=== PATIENT | female | born 1975 | race Caucasian/White ===

== ENCOUNTER 2016-12-22 15:04 | Emergency (ER) | payer OTHER ==
[~2016-12-22] VITALS: Ht 160 cm; Wt 110.0 kg
[2016-12-22 15:06] VITALS: Ht 160 cm; Wt 110.0 kg
[2016-12-22] MEDS ORDERED: ONDANSETRON 4 MG INJ IV STA (16:03)
[2016-12-22] MEDS ORDERED: morphine 4 MG/ML VIAL IV STA (16:03)
[2016-12-22] MEDS ORDERED: SOD CHLORIDE 0.9% 1,000 ML IV STA (16:03)
--- NOTE | 2016-12-22 16:18 | ERD ---
ER Documentation Chief Complaint Date/Time DATE: 12/22/16 TIME: 16:14 Chief Complaint RIGHT SIDED AP, SEEN AT [facility] LAST TUESDAY HPI This is a 41-year-old female with history of cholecystectomy in the past presenting to the emergency department complaining of right sided abdominal pain since last Tuesday. Patient states that it started off with the right lower quadrant and now it is all of her right side. Patient rates the pain 8 out of 10 and describes as sharp. Patient states that laying down helps her slightly. She denies any fevers, nausea vomiting. She admits to having a lot of diarrhea since she started antibiotic . Patient states that she went to [facility] 2 days ago on December 20 and received a full workup including blood work, CT of the abdomen and pelvis and pelvic exam she states her CT was normal. Patient was told that she had bacterial vaginosis and they gave her prescription for Flagyl. Patient stated that she started the Flagyl yesterday and that is when the diarrhea started. Patient denies any fevers. She admits to vaginal discharge. Patient followed up at [facility] [place] and saw a [employer] who referred her here ROS All systems reviewed and are negative except as per history of present illness. Medications Home Meds Active Scripts Famotidine* (Pepcid*) 20 Mg Tablet, 20 MG PO BID, #20 TAB Prov:MICA ARAMBULA PA-C 12/22/16 Cephalexin* (Keflex*) 500 Mg Capsule, 500 MG PO TID for 7 Days, CAP Prov:MICA ARAMBULA PA-C 12/22/16 Allergies Allergies: Coded Allergies: No Known Allergy (Unverified , 12/22/16) PMhx/Soc History of Surgery: Yes (CHOLECYSTECTOMY ) Anesthesia Reaction: No Hx Neurological Disorder: No Hx Respiratory Disorders: No Hx Cardiac Disorders: Yes (HTN) Hx Psychiatric Problems: No Hx Miscellaneous Medical Probl: No Hx Alcohol Use: No Hx Substance Use: No Hx Tobacco Use: No Smoking Status: Never smoker Physical Exam Vitals Vital Signs Date Time Temp Pulse Resp B/P Pulse Ox O2 Delivery O2 Flow Rate FiO2 12/22/16 15:06 98.1 83 18 138/83 99 Physical Exam GENERAL: well-developed/well-nourished, in no apparent distress, non-toxic appearing HENT: NC/AT, moist mucous membranes EYES: Conjunctiva normal NECK: Supple, no lymphadenopathy PULM: CTA bilaterally, no rales, rhonchi, or wheezing heard CV: Normal S1S2, RRR, good capillary refill GI: Soft, non-distended, tender to palpation epigastric region, right upper quadrant and right lower quadrant Normal bowel sounds, no masses or organomegaly felt on exam No gross peritonitis, no bruits Negative Rovsing, negative [place], negative McBurney's point, Negative CVAT BACK: No masses EXT: No clubbing, cyanosis, or edema NEURO: Alert and Orientated SKIN: Intact, normal turgor PSYCH: Normal mood and mentation Result Diagram: 12/22/16 1620 12/22/16 162 Results 24 hrs Laboratory Tests Test 12/22/16 16:20 White Blood Count 12.410^3/ul Red Blood Count 3.8710^6/ul Hemoglobin 11.9g/dl Hematocrit 35.8% Mean Corpuscular Volume 92.5fl Mean Corpuscular Hemoglobin 30.7pg Mean Corpuscular Hemoglobin Concent 33.2g/dl Red Cell Distribution Width 13.4% Platelet Count 83120^3/UL Mean Platelet Volume 9.0fl Neutrophils % 76.2% Lymphocytes % 16.2% Monocytes % 5.2% Eosinophils % 1.6% Basophils % 0.2% Nucleated Red Blood Cells % 0.0/100WBC Neutrophils # 9.410^3/ul Lymphocytes # 2.010^3/ul Monocytes # 0.610^3/ul Eosinophils # 0.210^3/ul Basophils # 0.010^3/ul Nucleated Red Blood Cells # 0.010^3/ul Urine Color LT. YELLOW Urine Clarity CLEAR Urine pH 6.0 Urine Specific [place] <=1.005 Urine Ketones NEGATIVE Urine Nitrite NEGATIVE Urine Bilirubin NEGATIVE Urine Urobilinogen 0.2 E.U./dL Urine Leukocyte Esterase 1+ Urine Microscopic RBC 0-2/HPF Urine Microscopic WBC 2-5/HPF Urine Squamous Epithelial Cells FEW Urine Hemoglobin 3+ Urine Glucose NEGATIVE% Urine Total Protein NEGATIVE Sodium Level 140mmol/L Potassium Level 3.6mmol/L Chloride Level 107mmol/L Carbon Dioxide Level 22mmol/L Anion Gap 15 Blood Urea Nitrogen 13mg/dl Creatinine 0.74mg/dl Glucose Level 103mg/dl Calcium Level 8.7mg/dl Total Bilirubin 0.6mg/dl Direct Bilirubin 0.00mg/dl Indirect Bilirubin 0.6mg/dl Aspartate Amino Transf (AST/SGOT) 37IU/L Alanine Aminotransferase (ALT/SGPT) 81IU/L Alkaline Phosphatase 181IU/L Total Protein 7.4g/dl Albumin 3.7g/dl Globulin 3.70g/dl Albumin/Globulin Ratio 1.00 Lipase 38U/L Current Medications Medications (Trade) Dose Ordered Sig/[place] Route PRN Reason Start Time Stop Time Status Last Admin Dose Admin Sodium Chloride (NS) 1,000 ml @ 1,000 mls/hr Q1H STAT IV 12/22/16 16:03 12/22/16 17:02 DC 12/22/16 16:30 Morphine Sulfate (morphine) 4 mg ONCE STAT IV 12/22/16 16:03 12/22/16 16:05 DC 12/22/16 16:30 Ondansetron HCl 4 mg 4 mg ONCE STAT IV 12/22/16 16:03 12/22/16 16:05 DC 12/22/16 16:30 Ceftriaxone Sodium (Rocephin) 50 ml @ 100 mls/hr ONCE STAT IVPB 12/22/16 17:17 12/22/16 17:46 DC 12/22/16 17:38 Azithromycin (Zithromax) 1,000 mg ONCE STAT PO 12/22/16 17:58 12/22/16 18:00 DC 12/22/16 18:05 Procedures/MDM This is a 41-year-old female with history of cholecystectomy in the past presenting to the emergency department complaining of right sided abdominal pain since last Tuesday. Likely due to UTI. Patient states that it started off with the right lower quadrant and now it is radiating upward. Patient was seen at [facility] 2 days ago on December 20 and received a full workup including blood work, CT of the abdomen and pelvis which was normal and pelvic exam. Patient was told that she had bacterial vaginosis and they gave her prescription for Flagyl. Patient stated that she started the Flagyl yesterday and started to have diarrhea. Patient appears well, she is stable vital signs and afebrile. IV access is established. Patient was given 1 L fluids, morphine and Zofran. Lab work was drawn. CBC did not show any evidence of leukocytosis or anemia. CMP did not show any evidence of renal, liver, or electrolyte abnormalities. Lipase was normal. UA showed +1 leukocyte esterase with 2-5 WBC, patient was empirically treated with ceftriaxone in the ED. In addition, patient was given Zithromax for possible STD. Patient is suitable for discharge for home and to follow-up with her primary care physician tomorrow. Prescription for Keflex was provided to take outpatient, I have discussed with her to continue Flagyl as directed by other physician. Discussed to follow-up with her primary care physician. Should precautions were given to return to the ER for any worsening symptoms. Patient understands and agrees with this plan. Hematuria stable for discharge for home Departure Diagnosis: Primary Impression: Abdominal pain Additional Impression: UTI (urinary tract infection) Condition: Stable MICA ARAMBULA PA-C December 22, 2016 16:18
[2016-12-22 16:32] LABS: ADD SCAN DIFF NO
[2016-12-22 16:35] LABS: BASOPHILS % 0.2 % (0.0-2.0); EOSINOPHILS # 0.2 10^3/ul (0.0-0.5); EOSINOPHILS % 1.6 % (0.0-7.0); HEMATOCRIT 35.8 % (37.0-47.0); HEMOGLOBIN 11.9 g/dl (12.0-16.0); LYMPHOCYTES % 16.2 % (15.0-51.0); MEAN CORPUSCULAR HEMOGLOBIN 30.7 pg (29.0-33.0); MEAN CORPUSCULAR HGB CONC 33.2 g/dl (32.0-37.0); MEAN CORPUSCULAR VOLUME 92.5 fl (82.0-101.0); MONOCYTE # 0.6 10^3/ul (0.3-0.9); MONOCYTES % 5.2 % (0.0-11.0); NEUTROPHIL # 9.4 10^3/ul (1.6-7.5); NEUTROPHILS % 76.2 % (39.0-77.0); PLATELET COUNT 287 10^3/UL (140-415); RED BLOOD COUNT 3.87 10^6/ul (4.20-5.40); RED CELL DISTRIBUTION WIDTH 13.4 % (11.5-14.5); WHITE BLOOD COUNT 12.4 10^3/ul (4.8-10.8)
[2016-12-22 16:41] LABS: ADD UMIC YES; URINE BILIRUBIN (Dip) NEGATIVE (NEGATIVE); URINE BLOOD (Dip) 3+ (NEGATIVE); URINE COLOR LT. YELLOW (YELLOW); URINE GLUCOSE (Dip) NEGATIVE (NEGATIVE); URINE KETONES (Dip) NEGATIVE (NEGATIVE); URINE LEUKOCYTE ESTERASE (Dip) 1+ (NEGATIVE); URINE NITRITE (Dip) NEGATIVE (NEGATIVE); URINE TOTAL PROTEIN (Dip) NEGATIVE (NEGATIVE); URINE UROBILINOGEN (Dip) 0.2 E.U./dL (0.1-1.0)
[2016-12-22 16:49] LABS: SQUAMOUS EPITHELIAL CELL,UR FEW; URINE RBCS 0-2 /HPF (0)
[2016-12-22 16:54] LABS: ALBUMIN 3.7 g/dl (3.3-4.9); POTASSIUM 3.6 mmol/L (3.5-5.1)
[2016-12-22 16:56] LABS: CREATININE 0.74 mg/dl (0.44-1.00)
[2016-12-22 16:57] LABS: BILIRUBIN,INDIRECT 0.6 mg/dl (0-1.1); BILIRUBIN,TOTAL 0.6 mg/dl (0.2-1.3); CALCIUM 8.7 mg/dl (8.4-10.2); TOTAL PROTEIN 7.4 g/dl (6.1-8.1)
--- NOTE | 2016-12-22 17:14 | RADRPT ---
PROCEDURE: Abdominal Ultrasound (right upper quadrant). CLINICAL INDICATION: Right upper quadrant pain. TECHNIQUE: Multiple real-time longitudinal and transverse images of the right upper quadrant of th e abdomen were acquired utilizing a curved array transducer. Images were reviewed on a high-resoluti on PACS workstation. COMPARISON: None FINDINGS: Liver is normal in echogenicity. The liver is mildly enlarged No focal masses are identified. The p ortal vein is patent. There is no evidence of intra or extrahepatic ductal dilatation. The common b ile duct measures 3.9 mm in diameter. The gallbladder is surgically absent. The visualized portions of the pancreas are unremarkable with obscuration of the tail of the pancrea s. No free fluid is identified. There is no evidence of right hydronephrosis or renal calcification. The right kidney measures 12.7 cm in length. The visualized portions of the aorta and inferior vena cava are within normal limits. IMPRESSION: 1. Status post cholecystectomy. 2. Hepatomegaly. 3. Otherwise unremarkable right upper quadrant ultrasound. RPTAT: KK .Jacques Tyson MD, Date Time Electronically viewed and signed by .Jacques Tyson MD, MD on 12/22/2016 17:14 .B/
[2016-12-22] MEDS ORDERED: CEFTRIAXONE 1 GM/50 ML (PMX) 50 ML IVPB STA (17:17)
[2016-12-22] MEDS ORDERED: CEPH-443 PO (17:52)
[2016-12-22] MEDS ORDERED: FAMO-18 PO (17:53)
[2016-12-22] MEDS ORDERED: AZITHROMYCIN 250 MG TAB PO STA (17:58)
== END 2016-12-22 18:26 | disposition home or self-care (01) ==
LOC: FTE 15:04
DX: R10.11 Right upper quadrant pain (principal); N39.0 Urinary tract infection, site not specified; I10 Essential (primary) hypertension
CPT/HCPCS: 36415; 76705; 80053; 81001; 83690; 85025; 87086; 87591; 96374; 96375; J0696; J2270; J2405; J7030; Z7502; Z7610; 81003